=== PATIENT | female | born 1970 ===

== ENCOUNTER 2017-11-11 13:14 | Outpatient (CLI) | payer OTHER ==
[~2017-11-11 13:14] MED LIST: EFFEXOR XR37.5 MG PO; GLYCOTROL CAPS1 EACH PO; OSTERA TABLET1 EACH PO; TAMOXIFEN CITRA20 MG PO; TRANSFER FACTOR PO; VITAMIN D35000 UNIT PO
== END 2017-11-11 13:19 | disposition home or self-care (01) ==
LOC: LAB 13:14
DX: N39.0 Urinary tract infection, site not specified (principal)

== ENCOUNTER 2017-11-15 10:00 | Outpatient (CLI) | payer OTHER | END 2017-11-15 10:22 | disposition home or self-care (01) | LOC: LAB 10:00 | DX: N39.0 Urinary tract infection, site not specified (principal) ==

== ENCOUNTER 2017-11-18 06:00 | Day surgery (SDC) | payer OTHER | END 2017-11-18 13:25 | disposition home or self-care (01) | LOC: CIR.AMB 06:00 | DX: C50.911 Malignant neoplasm of unspecified site of right female breast (principal); C50.912 Malignant neoplasm of unspecified site of left female breast; Z90.13 Acquired absence of bilateral breasts and nipples ==

== ENCOUNTER → 2018-04-10 | Day surgery (SDC) | payer OTHER | END | disposition home or self-care (01) | LOC: CIR.AMB 07:55 | DX: Z90.13 Acquired absence of bilateral breasts and nipples (principal) ==